=== PATIENT | female | born 1930 | race Caucasian/White ===

== ENCOUNTER 2017-10-22 01:04 | Inpatient (IN) | payer MEDICARE, MEDICAID ==
[~2017-10-22] VITALS: Ht 167.6 cm; Wt 90.7 kg
[2017-10-22] MEDS ORDERED: ondansetron/PF 4mg/2ml inj IV ONE (01:50)
[2017-10-22 02:24] LABS: BASOPHILS % (AUTO) 0.3 % (0-1); EOSINOPHILS # (AUTO) 0.2 X10'3 (0-0.9); EOSINOPHILS % (AUTO) 3.7 % (0-6); HEMOGLOBIN 12.2 g/dl (12.0-16.0); LYMPHOCYTES # (AUTO) 0.6 X10'3 (1.1-4.8); LYMPHOCYTES % (AUTO) 10.9 % (21-51); MEAN CORPUSCULAR HEMOGLOBIN 26.8 PG (27.0-31.0); MEAN CORPUSCULAR VOLUME 81.2 FL (78-98); MEAN PLATELET VOLUME 11.8 FL (7.4-10.4); MONOCYTES # (AUTO) 0.4 X10'3 (0-0.9); MONOCYTES % (AUTO) 7.8 % (2-12); NEUTROPHILS # (AUTO) 4.4 X10'3 (1.8-7.7); NEUTROPHILS % (AUTO) 77.3 % (42-75); PLATELET COUNT 88 X10'3 (140-440); RED BLOOD COUNT 4.55 X10'6 (4.20-5.60); WHITE BLOOD COUNT 5.7 X10'3 (4.5-11.0)
[2017-10-22 02:36] LABS: INR 1.2 INR; PARTIAL THROMBOPLASTIN TIME 33 SECONDS (22-32); PROTHROMBIN TIME 12.6 SECONDS (9.0-12.0)
[2017-10-22 02:44] LABS: ALANINE AMINOTRANSFERASE 17 U/L (12-78); ALBUMIN 3.1 G/DL (3.4-5.0); ALBUMIN/GLOBULIN RATIO 0.9 (1.1-1.5); ALKALINE PHOSPHATASE 106 IU/L (46-116); ANION GAP 4 (8-16); ASPARTATE AMINO TRANSFERASE 17 U/L (10-37); BILIRUBIN,TOTAL 0.5 MG/DL (0.1-1.0); BLOOD UREA NITROGEN 55 MG/DL (7-18); BUN/CREATININE RATIO 28.9 (6.6-38.0); CHLORIDE 90 MMOL/L (99-107); GLUCOSE 144 MG/DL (70-104); MAGNESIUM 2.1 MG/DL (1.5-2.4); SODIUM 123 MMOL/L (135-145); TOTAL PROTEIN 6.7 G/DL (6.4-8.2); eGFR 25 ML/MIN
[2017-10-22 02:52] LABS: GIANT PLATELET FEW; HYPOGRANULAR PLATELETS FEW; LARGE PLATELETS FEW; PLATELET ESTIMATE DECREASED
[2017-10-22 02:53] LABS: ACANTHOCYTES 1+; ANISOCYTOSIS 1+
[2017-10-22] MEDS ORDERED: sodium polystyrene sulfonate 15gm/60ml oral suspension PO ONE (03:10)
[2017-10-22] MEDS ORDERED: CALC500T11 PO (03:17)
[2017-10-22] MEDS ORDERED: MAGN400O6 PO (03:17)
[2017-10-22] MEDS ORDERED: LOPE2CAP PO (03:17)
[2017-10-22] MEDS ORDERED: ALBU0.63 NEB (03:17)
[2017-10-22] MEDS ORDERED: BISA10SU60 (03:17)
[2017-10-22] MEDS ORDERED: ACET-2119 PO (03:17)
[2017-10-22] MEDS ORDERED: HYDR-565 PO ×2 (03:17→17:33)
[2017-10-22] MEDS ORDERED: HYDR28CR14 TP (03:17)
[2017-10-22] MEDS ORDERED: NA P133E4 RC (03:17)
[2017-10-22] MEDS ORDERED: DORZ10DR7 ×2 (03:27→04:27)
[2017-10-22] MEDS ORDERED: CARV6.252 PO (03:27)
[2017-10-22] MEDS ORDERED: GABA100C PO (03:27)
[2017-10-22] MEDS ORDERED: DOCU-28 PO (03:27)
[2017-10-22] MEDS ORDERED: CHOL100046 PO (03:27)
[2017-10-22] MEDS ORDERED: PANT40TA4 PO (03:27)
[2017-10-22] MEDS ORDERED: MELA3TAB PO ×2 (03:27→04:27)
[2017-10-22] MEDS ORDERED: XAL0.005OS OP ×2 (03:27→17:33)
[2017-10-22] MEDS ORDERED: FURO80TA87 PO (03:31)
[2017-10-22] MEDS ORDERED: SENN-161 PO (03:31)
[2017-10-22] MEDS ORDERED: ZAR2.5T PO (03:32)
[2017-10-22] MEDS ORDERED: acetaminophen 325mg tablet PO PRN (03:50)
[2017-10-22] MEDS ORDERED: magnesium hydroxide 30ml (MOM) UD suspension PO PRN (03:50)
[2017-10-22] MEDS ORDERED: mag hydrox/Alum hydrox/simeth 30ml oral suspension PO PRN (03:50)
[2017-10-22] MEDS ORDERED: glucagon, human recombinant 1mg kit SUBCUT PRN (04:10)
[2017-10-22] MEDS ORDERED: MESSAGE TO PHARMACY PO ONE (04:10)
[2017-10-22] MEDS ORDERED: insulin Lispro (HumaLOG) vial - multi-dose SQ SCH (04:10)
[2017-10-22] MEDS ORDERED: dextrose 50%-water 50ml dispensing syringe IV PRN ×2 (04:10)
[2017-10-22] MEDS ORDERED: dextrose ORAL solution 15 GM/59 ML bottle PO PRN ×2 (04:10)
[2017-10-22] MEDS ORDERED: DORZ10DR10 OP ×2 (04:27→17:33)
[2017-10-22] MEDS ORDERED: PANT-47 PO (04:29)
[2017-10-22] MEDS ORDERED: albuterol 1.25 MG/3 ML (1/2 strength) nebule NEB SCH (07:00)
[2017-10-22 07:53] VITALS: BP 119/61
[2017-10-22] MEDS ORDERED: furosemide 10 MG/1 ML 10ml inj IV SCH (08:00)
[2017-10-22] MEDS ORDERED: furosemide 40mg tablet PO SCH (08:00)
[2017-10-22] MEDS ORDERED: carvedilol 6.25mg tablet PO SCH (08:00)
[2017-10-22] MEDS ORDERED: heparin, porcine 5000 units/ml vial SQ SCH (08:00)
[2017-10-22] MEDS ORDERED: metolazone 2.5mg tablet PO SCH (08:00)
[2017-10-22] MEDS: K and/or MAG REPLACEMENT MC SCH (08:45)
[2017-10-22] MEDS ORDERED: potassium Cl 40MEQ/NS 500ml 500 ML IV PRN ×2 (08:45)
[2017-10-22] MEDS ORDERED: potassium Cl 20 mEq SR tablet PO PRN ×2 (08:45)
[2017-10-22 09:10] LABS: CLARITY,URINE CLOUDY (Clear); COLOR,URINE YELLOW (Yellow); GLUCOSE, URINE NEGATIVE (Neg); KETONES,URINE NEGATIVE (Neg); LEUKOCYTE ESTERASE ,URINE LARGE (Neg); NITRITES, URINE NEGATIVE (Neg); OCCULT BLOOD,URINE SMALL (Neg); PROTEIN,URINE NEGATIVE (Neg); UROBILINOGEN,URINE 0.2 E.U/dL (0.2-1.0)
[2017-10-22 09:13] LABS: UA COLLECTION TYPE FOLEY CATH
[2017-10-22 09:22] LABS: WBC,URINE TNTC /HPF (0-4)
[2017-10-22 09:23] LABS: BACTERIA,URINE 4+ /HPF (Neg); RBC,URINE 0-2 /HPF (0-2); SQUAMOUS EPITHELIAL CELL,UR MODERATE /LPF (FEW)
[2017-10-22 09:24] LABS: WBC CLUMPS,URINE MODERATE /HPF (NEGATIVE)
[2017-10-22 11:30] VITALS: BP 99/56
[2017-10-22] MEDS: dorzolamide/timolol (Cosopt) ophthalmic drops 10ml bottle EACHEYE SCH ×2 (13:22→20:20)
[2017-10-22] MEDS: albuterol 1.25 MG/3 ML (1/2 strength) nebule NEB SCH (15:49)
[2017-10-22] MEDS ORDERED: SENN-139 PO (17:33)
[2017-10-22] MEDS ORDERED: LACTC PO (17:33)
[2017-10-22] MEDS ORDERED: POTA10TA19 PO (17:33)
[2017-10-22] MEDS ORDERED: MULT1CAP44 PO (17:33)
[2017-10-22] MEDS ORDERED: IPRA3AMP IH (17:37)
[2017-10-22 18:00] VITALS: BP 109/60
[2017-10-22 18:41] LABS: ANION GAP 9 (8-16); BLOOD UREA NITROGEN 53 MG/DL (7-18); BUN/CREATININE RATIO 26.5 (6.6-38.0); CALCIUM 8.6 MG/DL (8.5-10.1); CHLORIDE 90 MMOL/L (99-107); GLUCOSE 139 MG/DL (70-104); POTASSIUM 4.7 MMOL/L (3.5-5.1); SODIUM 126 MMOL/L (135-145); TOTAL CARBON DIOXIDE 26.7 MMOL/L (24-32); eGFR 23 ML/MIN
[2017-10-22] MEDS ORDERED: fluconazole 100mg tablet PO ONE (19:00)
[2017-10-22] MEDS: levoFLOXACIN-Levaquin 500mg/D5 100 ML IV SCH (19:55)
[2017-10-22] MEDS: furosemide 20 MG/2 ML vial IV SCH (20:02)
[2017-10-22] MEDS: carVEDilol 3.125mg tablet PO SCH (20:20)
[2017-10-22] MEDS: latanoprost 0.005% 2.5ml ophthalmic drops EACHEYE SCH (20:35)
[2017-10-22] MEDS: insulin glargine (Lantus) pen - multi-dose SQ SCH (21:00)
[2017-10-22] MEDS: ondansetron/PF 4mg/2ml inj IV PRN (22:09)
[2017-10-22 23:53] LABS: ALBUMIN 2.8 G/DL (3.4-5.0); ANION GAP 7 (8-16); BLOOD UREA NITROGEN 53 MG/DL (7-18); BUN/CREATININE RATIO 27.9 (6.6-38.0); CALCIUM 8.6 MG/DL (8.5-10.1); CHLORIDE 91 MMOL/L (99-107); GLUCOSE 151 MG/DL (70-104); POTASSIUM 4.7 MMOL/L (3.5-5.1); SODIUM 123 MMOL/L (135-145); TOTAL CARBON DIOXIDE 24.8 MMOL/L (24-32); eGFR 25 ML/MIN
[2017-10-23] VITALS: BP 118/58
[2017-10-23] MEDS: furosemide 20 MG/2 ML vial IV SCH ×3 (00:55→16:55)
[2017-10-23] MEDS: albuterol 1.25 MG/3 ML (1/2 strength) nebule NEB SCH ×4 (02:24→23:38)
[2017-10-23 06:17] LABS: BASOPHILS % (AUTO) 0.3 % (0-1); EOSINOPHILS % (AUTO) 0.7 % (0-6); HEMATOCRIT 39.9 % (35.0-45.0); HEMOGLOBIN 13.4 g/dl (12.0-16.0); LYMPHOCYTES # (AUTO) 0.6 X10'3 (1.1-4.8); LYMPHOCYTES % (AUTO) 10.2 % (21-51); MEAN CORPUSCULAR HGB CONC 33.5 % (33.0-36.5); MEAN CORPUSCULAR VOLUME 80.6 FL (78-98); MEAN PLATELET VOLUME 11.4 FL (7.4-10.4); MONOCYTES # (AUTO) 0.4 X10'3 (0-0.9); MONOCYTES % (AUTO) 6.8 % (2-12); NEUTROPHILS # (AUTO) 4.7 X10'3 (1.8-7.7); PLATELET COUNT 75 X10'3 (140-440); RED BLOOD COUNT 4.94 X10'6 (4.20-5.60); RED CELL DISTRIBUTION WIDTH 17.1 % (11.5-14.5); WHITE BLOOD COUNT 5.7 X10'3 (4.5-11.0)
[2017-10-23 06:21] LABS: INR 1.3 INR; PROTHROMBIN TIME 13.3 SECONDS (9.0-12.0)
[2017-10-23 06:22] LABS: GLUCOSE 137 MG/DL (70-104)
[2017-10-23 06:23] LABS: ALANINE AMINOTRANSFERASE 19 U/L (12-78); ALBUMIN 3.2 G/DL (3.4-5.0); ALBUMIN/GLOBULIN RATIO 0.9 (1.1-1.5); ALKALINE PHOSPHATASE 108 IU/L (46-116); ANION GAP 11 (8-16); ASPARTATE AMINO TRANSFERASE 19 U/L (10-37); BILIRUBIN,TOTAL 0.6 MG/DL (0.1-1.0); BLOOD UREA NITROGEN 52 MG/DL (7-18); BUN/CREATININE RATIO 24.8 (6.6-38.0); CALCIUM 8.9 MG/DL (8.5-10.1); CHLORIDE 89 MMOL/L (99-107); MAGNESIUM 2.1 MG/DL (1.5-2.4); POTASSIUM 4.6 MMOL/L (3.5-5.1); SODIUM 127 MMOL/L (135-145); TOTAL CARBON DIOXIDE 26.6 MMOL/L (24-32); TOTAL PROTEIN 6.8 G/DL (6.4-8.2); eGFR 22 ML/MIN
[2017-10-23 07:25] VITALS: BP 147/99
[2017-10-23] MEDS: K and/or MAG REPLACEMENT MC SCH (08:00)
[2017-10-23] MEDS: dorzolamide/timolol (Cosopt) ophthalmic drops 10ml bottle EACHEYE SCH ×2 (08:55→21:38)
[2017-10-23] MEDS: carVEDilol 3.125mg tablet PO SCH ×2 (09:00→21:38)
[2017-10-23 11:00] VITALS: BP 139/89
[2017-10-23 12:11] LABS: ALBUMIN 3.2 G/DL (3.4-5.0); ANION GAP 9 (8-16); BLOOD UREA NITROGEN 52 MG/DL (7-18); CALCIUM 9.1 MG/DL (8.5-10.1); CHLORIDE 90 MMOL/L (99-107); GLUCOSE 156 MG/DL (70-104); POTASSIUM 4.5 MMOL/L (3.5-5.1); SODIUM 127 MMOL/L (135-145); TOTAL CARBON DIOXIDE 27.9 MMOL/L (24-32); eGFR 23 ML/MIN
[2017-10-23 14:50] VITALS: BP 152/75
[2017-10-23 14:58] VITALS: BP 152/72
[2017-10-23 16:06] LABS: GLUCOSE,BODY FLUID 156 MG/DL; LDH,BODY FLUID 72 U/L; TOTAL PROTEIN,BODY FLUID 2.9 G/DL
[2017-10-23 16:40] LABS: BF RBC COUNT 28 /CU MM; BF WBC COUNT 11 /CU MM (0-1000); BFAPPEAR CLEAR; BFCOLOR YELLOW; BFVOLUME 1000 ML
[2017-10-23] MEDS: lactobacillus rhamnosus 10,000 MMU CELLS/CAPSULE PO SCH (16:57)
[2017-10-23 17:34] LABS: ALBUMIN 2.6 G/DL (3.4-5.0); ANION GAP 11 (8-16); BLOOD UREA NITROGEN 54 MG/DL (7-18); BUN/CREATININE RATIO 28.4 (6.6-38.0); CALCIUM 8.7 MG/DL (8.5-10.1); CHLORIDE 91 MMOL/L (99-107); GLUCOSE 148 MG/DL (70-104); POTASSIUM 4.9 MMOL/L (3.5-5.1); SODIUM 125 MMOL/L (135-145); eGFR 25 ML/MIN
[2017-10-23 17:36] LABS: LYMPHOCYTES,BODY FLUID 12 %; NEUTROPHILS,BODY FLUID 66 %
[2017-10-23 17:37] LABS: EOSINOPHILS,BODY FLUID 0 %; MONOCYTES,BODY FLUID 22 %
[2017-10-23 18:00] VITALS: BP 132/66
[2017-10-23] MEDS: insulin glargine (Lantus) pen - multi-dose SQ SCH (21:00)
[2017-10-23] MEDS: HYDROcodone/acetaminophen 10/325mg tab PO PRN (21:37)
[2017-10-23] MEDS: latanoprost 0.005% 2.5ml ophthalmic drops EACHEYE SCH (21:38)
[2017-10-24] VITALS (12 sets, daily range): BP systolic 94–125; BP diastolic 40–81
[2017-10-24] MEDS: furosemide 20 MG/2 ML vial IV SCH ×3 (00:23→16:00)
[2017-10-24 05:55] LABS: BASOPHILS % (AUTO) 0.4 % (0-1); EOSINOPHILS # (AUTO) 0.1 X10'3 (0-0.9); EOSINOPHILS % (AUTO) 1.4 % (0-6); HEMOGLOBIN 12.9 g/dl (12.0-16.0); LYMPHOCYTES # (AUTO) 0.9 X10'3 (1.1-4.8); LYMPHOCYTES % (AUTO) 16.4 % (21-51); MEAN CORPUSCULAR HEMOGLOBIN 27.1 PG (27.0-31.0); MEAN CORPUSCULAR HGB CONC 33.1 % (33.0-36.5); MEAN CORPUSCULAR VOLUME 81.8 FL (78-98); MEAN PLATELET VOLUME 11.6 FL (7.4-10.4); MONOCYTES # (AUTO) 0.6 X10'3 (0-0.9); MONOCYTES % (AUTO) 11.2 % (2-12); NEUTROPHILS # (AUTO) 3.8 X10'3 (1.8-7.7); NEUTROPHILS % (AUTO) 70.6 % (42-75); PLATELET COUNT 67 X10'3 (140-440); RED BLOOD COUNT 4.77 X10'6 (4.20-5.60); RED CELL DISTRIBUTION WIDTH 17.2 % (11.5-14.5); WHITE BLOOD COUNT 5.4 X10'3 (4.5-11.0)
[2017-10-24] MEDS: HYDROcodone/acetaminophen 10/325mg tab PO PRN ×2 (06:04→21:41)
[2017-10-24 06:37] LABS: ALANINE AMINOTRANSFERASE 17 U/L (12-78); ALBUMIN 2.8 G/DL (3.4-5.0); ALBUMIN/GLOBULIN RATIO 0.9 (1.1-1.5); ALKALINE PHOSPHATASE 92 IU/L (46-116); ANION GAP 9 (8-16); ASPARTATE AMINO TRANSFERASE 21 U/L (10-37); BILIRUBIN,TOTAL 0.5 MG/DL (0.1-1.0); BLOOD UREA NITROGEN 54 MG/DL (7-18); BUN/CREATININE RATIO 25.7 (6.6-38.0); CALCIUM 8.6 MG/DL (8.5-10.1); CHLORIDE 91 MMOL/L (99-107); GLUCOSE 114 MG/DL (70-104); POTASSIUM 4.1 MMOL/L (3.5-5.1); SODIUM 128 MMOL/L (135-145); TOTAL CARBON DIOXIDE 27.9 MMOL/L (24-32); TOTAL PROTEIN 5.9 G/DL (6.4-8.2); eGFR 22 ML/MIN
[2017-10-24 07:01] LABS: ANISOCYTOSIS 1+; LARGE PLATELETS FEW; MICROCYTOSIS 1+; PLATELET ESTIMATE DECREASED; POIKILOCYTOSIS FEW; POLYCHROMASIA FEW
[2017-10-24] MEDS: lactobacillus rhamnosus 10,000 MMU CELLS/CAPSULE PO SCH ×2 (07:30→16:19)
[2017-10-24] MEDS: K and/or MAG REPLACEMENT MC SCH (08:00)
[2017-10-24] MEDS: carVEDilol 3.125mg tablet PO SCH ×2 (08:00→20:00)
[2017-10-24] MEDS: albuterol 1.25 MG/3 ML (1/2 strength) nebule NEB SCH ×3 (08:02→23:59)
[2017-10-24] MEDS: levoFLOXACIN-Levaquin 500mg/D5 100 ML IV SCH (08:25)
[2017-10-24] MEDS: dorzolamide/timolol (Cosopt) ophthalmic drops 10ml bottle EACHEYE SCH ×2 (08:25→20:00)
[2017-10-24] MEDS: ondansetron/PF 4mg/2ml inj IV PRN ×2 (12:39→21:41)
[2017-10-24] MEDS: insulin glargine (Lantus) pen - multi-dose SQ SCH (21:00)
[2017-10-24] MEDS: DOBUTamine-DoBUTrex 500mg/D5W 250 ML IV SCH (21:36)
[2017-10-24] MEDS: Melatonin 3mg tablet PO SCH (21:41)
[2017-10-24] MEDS: latanoprost 0.005% 2.5ml ophthalmic drops EACHEYE SCH (21:53)
[2017-10-25] VITALS (24 sets, daily range): BP systolic 77–143; BP diastolic 31–98
[2017-10-25] MEDS: furosemide 20 MG/2 ML vial IV SCH ×4 (00:25→23:34)
[2017-10-25 07:03] LABS: HEMATOCRIT 37.3 % (35.0-45.0); HEMOGLOBIN 12.3 g/dl (12.0-16.0); MEAN CORPUSCULAR HEMOGLOBIN 26.7 PG (27.0-31.0); MEAN CORPUSCULAR HGB CONC 32.9 % (33.0-36.5); MEAN CORPUSCULAR VOLUME 80.9 FL (78-98); MEAN PLATELET VOLUME 11.7 FL (7.4-10.4); PLATELET COUNT 72 X10'3 (140-440); RED BLOOD COUNT 4.61 X10'6 (4.20-5.60); RED CELL DISTRIBUTION WIDTH 17.4 % (11.5-14.5); WHITE BLOOD COUNT 5.1 X10'3 (4.5-11.0)
[2017-10-25 07:07] LABS: ALANINE AMINOTRANSFERASE 19 U/L (12-78); ALBUMIN 2.7 G/DL (3.4-5.0); ALBUMIN/GLOBULIN RATIO 0.9 (1.1-1.5); ALKALINE PHOSPHATASE 91 IU/L (46-116); ANION GAP 11 (8-16); ASPARTATE AMINO TRANSFERASE 23 U/L (10-37); BILIRUBIN,TOTAL 0.5 MG/DL (0.1-1.0); BLOOD UREA NITROGEN 54 MG/DL (7-18); BUN/CREATININE RATIO 24.5 (6.6-38.0); CALCIUM 8.7 MG/DL (8.5-10.1); CHLORIDE 91 MMOL/L (99-107); GLUCOSE 100 MG/DL (70-104); SODIUM 130 MMOL/L (135-145); TOTAL CARBON DIOXIDE 28.3 MMOL/L (24-32); TOTAL PROTEIN 5.7 G/DL (6.4-8.2); eGFR 21 ML/MIN
[2017-10-25] MEDS: lactobacillus rhamnosus 10,000 MMU CELLS/CAPSULE PO SCH ×2 (07:25→16:58)
[2017-10-25] MEDS: carVEDilol 3.125mg tablet PO SCH ×2 (07:26→20:00)
[2017-10-25] MEDS: HYDROcodone/acetaminophen 10/325mg tab PO PRN (07:26)
[2017-10-25] MEDS: albuterol 1.25 MG/3 ML (1/2 strength) nebule NEB SCH ×3 (07:30→23:15)
[2017-10-25 07:51] LABS: ANISOCYTOSIS 1+; NUCLEATED RED BLOOD CELLS 1 /100WBC (0-0); PLATELET ESTIMATE DECREASED; POLYCHROMASIA 1+; ROULEAUX 1+; TOTAL CELLS COUNTED 100
[2017-10-25 07:52] LABS: ACANTHOCYTES 1+; BURR CELLS 1+
[2017-10-25] MEDS: K and/or MAG REPLACEMENT MC SCH (08:00)
[2017-10-25] MEDS: dorzolamide/timolol (Cosopt) ophthalmic drops 10ml bottle EACHEYE SCH ×2 (08:06→21:47)
[2017-10-25] MEDS: ondansetron/PF 4mg/2ml inj IV PRN (14:34)
[2017-10-25] MEDS: insulin glargine (Lantus) pen - multi-dose SQ SCH (21:00)
[2017-10-25] MEDS: Melatonin 3mg tablet PO SCH (21:36)
[2017-10-25] MEDS: latanoprost 0.005% 2.5ml ophthalmic drops EACHEYE SCH (21:37)
[2017-10-26] VITALS (10 sets, daily range): BP systolic 105–161; BP diastolic 59–114
[2017-10-26] MEDS: DOBUTamine-DoBUTrex 500mg/D5W 250 ML IV SCH ×2 (01:21→07:38)
[2017-10-26 06:41] LABS: BASOPHILS % (AUTO) 0 % (0-1); EOSINOPHILS # (AUTO) 0.1 X10'3 (0-0.9); HEMATOCRIT 38.2 % (35.0-45.0); HEMOGLOBIN 12.9 g/dl (12.0-16.0); LYMPHOCYTES # (AUTO) 0.6 X10'3 (1.1-4.8); LYMPHOCYTES % (AUTO) 9.2 % (21-51); MEAN CORPUSCULAR HEMOGLOBIN 26.9 PG (27.0-31.0); MEAN CORPUSCULAR HGB CONC 33.9 % (33.0-36.5); MEAN CORPUSCULAR VOLUME 79.3 FL (78-98); MEAN PLATELET VOLUME 10.1 FL (7.4-10.4); MONOCYTES # (AUTO) 0.5 X10'3 (0-0.9); MONOCYTES % (AUTO) 7.3 % (2-12); NEUTROPHILS # (AUTO) 5.1 X10'3 (1.8-7.7); NEUTROPHILS % (AUTO) 81.5 % (42-75); PLATELET COUNT 72 X10'3 (140-440); RED BLOOD COUNT 4.81 X10'6 (4.20-5.60); RED CELL DISTRIBUTION WIDTH 17.3 % (11.5-14.5); WHITE BLOOD COUNT 6.2 X10'3 (4.5-11.0)
[2017-10-26] MEDS: albuterol 1.25 MG/3 ML (1/2 strength) nebule NEB SCH ×3 (06:52→23:04)
[2017-10-26 07:21] LABS: ALANINE AMINOTRANSFERASE 20 U/L (12-78); ALBUMIN 2.8 G/DL (3.4-5.0); ALBUMIN/GLOBULIN RATIO 0.8 (1.1-1.5); ALKALINE PHOSPHATASE 108 IU/L (46-116); ANION GAP 10 (8-16); ASPARTATE AMINO TRANSFERASE 24 U/L (10-37); BILIRUBIN,TOTAL 0.6 MG/DL (0.1-1.0); BLOOD UREA NITROGEN 49 MG/DL (7-18); BUN/CREATININE RATIO 24.5 (6.6-38.0); CALCIUM 8.3 MG/DL (8.5-10.1); CHLORIDE 90 MMOL/L (99-107); GLUCOSE 135 MG/DL (70-104); POTASSIUM 3.8 MMOL/L (3.5-5.1); SODIUM 128 MMOL/L (135-145); TOTAL CARBON DIOXIDE 27.7 MMOL/L (24-32); TOTAL PROTEIN 6.1 G/DL (6.4-8.2); eGFR 23 ML/MIN
[2017-10-26] MEDS: K and/or MAG REPLACEMENT MC SCH (08:00)
[2017-10-26] MEDS: dorzolamide/timolol (Cosopt) ophthalmic drops 10ml bottle EACHEYE SCH ×2 (08:00→20:49)
[2017-10-26] MEDS: lactobacillus rhamnosus 10,000 MMU CELLS/CAPSULE PO SCH ×2 (09:00→16:58)
[2017-10-26] MEDS: carVEDilol 3.125mg tablet PO SCH ×2 (09:01→20:49)
[2017-10-26] MEDS: furosemide 20 MG/2 ML vial IV SCH ×2 (09:01→16:52)
[2017-10-26] MEDS: levoFLOXACIN-Levaquin 500mg/D5 100 ML IV SCH (09:02)
[2017-10-26 11:45] LABS: BASOPHILS % (AUTO) 0.2 % (0-1); EOSINOPHILS # (AUTO) 0.1 X10'3 (0-0.9); EOSINOPHILS % (AUTO) 0.9 % (0-6); HEMATOCRIT 38.7 % (35.0-45.0); HEMOGLOBIN 12.6 g/dl (12.0-16.0); LYMPHOCYTES # (AUTO) 0.5 X10'3 (1.1-4.8); LYMPHOCYTES % (AUTO) 8.7 % (21-51); MEAN CORPUSCULAR HEMOGLOBIN 26.7 PG (27.0-31.0); MEAN CORPUSCULAR HGB CONC 32.7 % (33.0-36.5); MEAN CORPUSCULAR VOLUME 81.8 FL (78-98); MEAN PLATELET VOLUME 10.6 FL (7.4-10.4); MONOCYTES # (AUTO) 0.4 X10'3 (0-0.9); MONOCYTES % (AUTO) 6.6 % (2-12); NEUTROPHILS # (AUTO) 4.8 X10'3 (1.8-7.7); NEUTROPHILS % (AUTO) 83.6 % (42-75); PLATELET COUNT 78 X10'3 (140-440); RED BLOOD COUNT 4.73 X10'6 (4.20-5.60); RED CELL DISTRIBUTION WIDTH 17.8 % (11.5-14.5); WHITE BLOOD COUNT 5.8 X10'3 (4.5-11.0)
[2017-10-26 12:00] LABS: ABG HCO3 27.8 mmol/L (22.0-26.0); ABG OXYGEN SATURATION 94.5 % (95-98); ABG PO2 (T) 69.8 mmHg (83-108); FCOHb 0.5 % (0.5-1.5); FMetHb 0.3 % (0.3-1.12); FO2Hb 93.7 % (94-100)
[2017-10-26 12:09] LABS: ALANINE AMINOTRANSFERASE 20 U/L (12-78); ALBUMIN 2.8 G/DL (3.4-5.0); ALBUMIN/GLOBULIN RATIO 0.8 (1.1-1.5); ALKALINE PHOSPHATASE 103 IU/L (46-116); ANION GAP 9 (8-16); ASPARTATE AMINO TRANSFERASE 22 U/L (10-37); BILIRUBIN,TOTAL 0.6 MG/DL (0.1-1.0); BLOOD UREA NITROGEN 48 MG/DL (7-18); CALCIUM 8.5 MG/DL (8.5-10.1); CHLORIDE 92 MMOL/L (99-107); GLUCOSE 155 MG/DL (70-104); POTASSIUM 3.7 MMOL/L (3.5-5.1); SODIUM 130 MMOL/L (135-145); TOTAL CARBON DIOXIDE 28.9 MMOL/L (24-32); TOTAL PROTEIN 6.1 G/DL (6.4-8.2); TROPONIN I < 0.04 NG/ML (0.0-0.05); eGFR 23 ML/MIN
[2017-10-26] MEDS ORDERED: aspirin 325mg tablet PO ONE (13:00)
[2017-10-26] MEDS ORDERED: piperacillin/tazo 3.375gm/50ml 50 ML IV ONE (17:05)
[2017-10-26] MEDS: latanoprost 0.005% 2.5ml ophthalmic drops EACHEYE SCH (20:49)
[2017-10-26] MEDS: Melatonin 3mg tablet PO SCH (20:49)
[2017-10-26] MEDS: insulin glargine (Lantus) pen - multi-dose SQ SCH (22:00)
[2017-10-27] VITALS (15 sets, daily range): BP systolic 108–158; BP diastolic 47–100
[2017-10-27] MEDS: furosemide 20 MG/2 ML vial IV SCH ×3 (00:09→17:05)
[2017-10-27] MEDS: piperacillin/tazo 3.375gm/50ml 50 ML IV SCH ×3 (02:01→14:07)
[2017-10-27 07:43] LABS: BASOPHILS % (AUTO) 0 % (0-1); EOSINOPHILS # (AUTO) 0.1 X10'3 (0-0.9); HEMATOCRIT 36.9 % (35.0-45.0); HEMOGLOBIN 12.4 g/dl (12.0-16.0); LYMPHOCYTES # (AUTO) 0.4 X10'3 (1.1-4.8); LYMPHOCYTES % (AUTO) 7.2 % (21-51); MEAN CORPUSCULAR HGB CONC 33.5 % (33.0-36.5); MEAN CORPUSCULAR VOLUME 80.4 FL (78-98); MEAN PLATELET VOLUME 10.5 FL (7.4-10.4); MONOCYTES # (AUTO) 0.4 X10'3 (0-0.9); MONOCYTES % (AUTO) 7.7 % (2-12); NEUTROPHILS # (AUTO) 4.7 X10'3 (1.8-7.7); NEUTROPHILS % (AUTO) 84.1 % (42-75); PLATELET COUNT 64 X10'3 (140-440); RED BLOOD COUNT 4.59 X10'6 (4.20-5.60); RED CELL DISTRIBUTION WIDTH 17.1 % (11.5-14.5); WHITE BLOOD COUNT 5.5 X10'3 (4.5-11.0)
[2017-10-27 07:59] LABS: ALANINE AMINOTRANSFERASE 21 U/L (12-78); ALBUMIN 2.7 G/DL (3.4-5.0); ALBUMIN/GLOBULIN RATIO 0.8 (1.1-1.5); ALKALINE PHOSPHATASE 95 IU/L (46-116); ANION GAP 8 (8-16); ASPARTATE AMINO TRANSFERASE 21 U/L (10-37); BILIRUBIN,TOTAL 0.6 MG/DL (0.1-1.0); BLOOD UREA NITROGEN 44 MG/DL (7-18); BUN/CREATININE RATIO 23.2 (6.6-38.0); CALCIUM 8.2 MG/DL (8.5-10.1); CHLORIDE 92 MMOL/L (99-107); GLUCOSE 175 MG/DL (70-104); POTASSIUM 3.4 MMOL/L (3.5-5.1); SODIUM 131 MMOL/L (135-145); TOTAL CARBON DIOXIDE 30.9 MMOL/L (24-32); eGFR 25 ML/MIN
[2017-10-27] MEDS: K and/or MAG REPLACEMENT MC SCH (08:00)
[2017-10-27] MEDS: albuterol 1.25 MG/3 ML (1/2 strength) nebule NEB SCH ×2 (08:10→19:56)
[2017-10-27] MEDS: lactobacillus rhamnosus 10,000 MMU CELLS/CAPSULE PO SCH ×2 (09:09→17:05)
[2017-10-27] MEDS: atorvastatin 20mg tablet PO SCH (09:09)
[2017-10-27] MEDS: carVEDilol 3.125mg tablet PO SCH ×2 (09:10→22:01)
[2017-10-27] MEDS: dorzolamide/timolol (Cosopt) ophthalmic drops 10ml bottle EACHEYE SCH ×2 (09:12→21:09)
[2017-10-27] MEDS: aspirin 325mg tablet PO SCH (09:12)
[2017-10-27] MEDS: DOBUTamine-DoBUTrex 500mg/D5W 250 ML IV SCH ×3 (12:54→13:30)
[2017-10-27] MEDS ORDERED: DOBUTamine-DoBUTrex 500mg/D5W 250 ML IV SCH (13:20)
[2017-10-27] MEDS: DOBUTamine 2000 MCG/250ML BAG IV SCH (13:28)
[2017-10-27] MEDS ORDERED: magnesium 4gm in 100ml NS 100 ML IV PRN (20:30)
[2017-10-27] MEDS ORDERED: magnesium Cl slow-release 64mg tablet PO PRN (20:30)
[2017-10-27] MEDS ORDERED: magnesium 2GM in 50ml NS 50 ML IV PRN (20:30)
[2017-10-27] MEDS ORDERED: potassium Cl 40MEQ/NS 500ml 500 ML IV PRN ×2 (20:30)
[2017-10-27] MEDS: insulin glargine (Lantus) pen - multi-dose SQ SCH (21:00)
[2017-10-27] MEDS: latanoprost 0.005% 2.5ml ophthalmic drops EACHEYE SCH (21:10)
[2017-10-27 21:50] LABS: ABG BASE EXCESS 2.9 mmol/L (-2.0-3.0); ABG HCO3 28.8 mmol/L (22.0-26.0); ABG OXYGEN SATURATION 93.7 % (95-98); ABG PCO2 (T) 47.8 mmHg (32.0-45.0); ABG PH (T) 7.394 (7.350-7.450); ALLEN'S TEST Positive; FCOHb 0.3 % (0.5-1.5); FLOW 4 L/min; FMetHb 0.1 % (0.3-1.12); FO2Hb 93.3 % (94-100); PATIENT TEMPERATURE 36.1; RESPIRATORY RATE (OBSERVED) 16 b/min; TOTAL HEMOGLOBIN 12.9 G/dl (12.0-16.0)
[2017-10-27] MEDS: Melatonin 3mg tablet PO SCH (22:01)
[2017-10-27] MEDS: potassium Cl 20 mEq SR tablet PO PRN (22:01)
[2017-10-28] VITALS (12 sets, daily range): BP systolic 103–153; BP diastolic 42–103
[2017-10-28] MEDS: furosemide 20 MG/2 ML vial IV SCH ×4 (00:18→23:42)
[2017-10-28] MEDS: piperacillin-tazo 2.25gm/50ml 50 ML IV SCH ×4 (00:18→23:42)
[2017-10-28] MEDS: albuterol 1.25 MG/3 ML (1/2 strength) nebule NEB SCH ×5 (02:06→23:01)
[2017-10-28 07:05] LABS: BASOPHILS % (AUTO) 0.2 % (0-1); EOSINOPHILS # (AUTO) 0.1 X10'3 (0-0.9); HEMATOCRIT 37.8 % (35.0-45.0); HEMOGLOBIN 12.7 g/dl (12.0-16.0); LYMPHOCYTES # (AUTO) 0.6 X10'3 (1.1-4.8); LYMPHOCYTES % (AUTO) 10.8 % (21-51); MEAN CORPUSCULAR HEMOGLOBIN 27.2 PG (27.0-31.0); MEAN CORPUSCULAR HGB CONC 33.5 % (33.0-36.5); MEAN CORPUSCULAR VOLUME 81.1 FL (78-98); MEAN PLATELET VOLUME 10.5 FL (7.4-10.4); MONOCYTES # (AUTO) 0.5 X10'3 (0-0.9); NEUTROPHILS # (AUTO) 4.5 X10'3 (1.8-7.7); PLATELET COUNT 56 X10'3 (140-440); RED BLOOD COUNT 4.66 X10'6 (4.20-5.60); RED CELL DISTRIBUTION WIDTH 17.3 % (11.5-14.5); WHITE BLOOD COUNT 5.8 X10'3 (4.5-11.0)
[2017-10-28 07:33] LABS: ANISOCYTOSIS 1+; PLATELET ESTIMATE DECREASED
[2017-10-28 07:34] LABS: ACANTHOCYTES 1+
[2017-10-28 07:49] LABS: ALANINE AMINOTRANSFERASE 19 U/L (12-78); ALBUMIN 2.7 G/DL (3.4-5.0); ALBUMIN/GLOBULIN RATIO 0.8 (1.1-1.5); ALKALINE PHOSPHATASE 77 IU/L (46-116); ANION GAP 5 (8-16); ASPARTATE AMINO TRANSFERASE 18 U/L (10-37); BILIRUBIN,TOTAL 0.6 MG/DL (0.1-1.0); BLOOD UREA NITROGEN 40 MG/DL (7-18); CHLORIDE 93 MMOL/L (99-107); GLUCOSE 180 MG/DL (70-104); POTASSIUM 3.3 MMOL/L (3.5-5.1); SODIUM 131 MMOL/L (135-145); TOTAL CARBON DIOXIDE 32.7 MMOL/L (24-32); TOTAL PROTEIN 6.1 G/DL (6.4-8.2); eGFR 23 ML/MIN
[2017-10-28] MEDS ORDERED: K and/or MAG REPLACEMENT MC SCH (08:00)
[2017-10-28] MEDS: K and/or MAG REPLACEMENT MC SCH (08:00)
[2017-10-28] MEDS: aspirin 325mg tablet PO SCH (08:34)
[2017-10-28] MEDS: dorzolamide/timolol (Cosopt) ophthalmic drops 10ml bottle EACHEYE SCH ×2 (08:35→19:35)
[2017-10-28] MEDS: atorvastatin 20mg tablet PO SCH (08:35)
[2017-10-28] MEDS: lactobacillus rhamnosus 10,000 MMU CELLS/CAPSULE PO SCH ×2 (08:35→17:16)
[2017-10-28] MEDS: carVEDilol 3.125mg tablet PO SCH ×2 (08:35→19:35)
[2017-10-28] MEDS: DOBUTamine 2000 MCG/250ML BAG IV SCH (08:35)
[2017-10-28 08:49] LABS: MAGNESIUM 1.6 MG/DL (1.5-2.4)
[2017-10-28] MEDS: levoFLOXACIN 500mg tablet PO SCH ×2 (11:00→11:48)
[2017-10-28] MEDS: potassium Cl 20 mEq SR tablet PO PRN (11:48)
[2017-10-28] MEDS: ondansetron/PF 4mg/2ml inj IV PRN (19:34)
[2017-10-28] MEDS: Melatonin 3mg tablet PO SCH (19:35)
[2017-10-28] MEDS: latanoprost 0.005% 2.5ml ophthalmic drops EACHEYE SCH (19:36)
[2017-10-28] MEDS: insulin glargine (Lantus) pen - multi-dose SQ SCH (21:00)
[2017-10-29] VITALS (8 sets, daily range): BP systolic 116–140; BP diastolic 50–115
[2017-10-29] MEDS: DOBUTamine 2000 MCG/250ML BAG IV SCH (02:34)
[2017-10-29 07:17] LABS: BASOPHILS % (AUTO) 0 % (0-1); EOSINOPHILS # (AUTO) 0.1 X10'3 (0-0.9); EOSINOPHILS % (AUTO) 1.9 % (0-6); HEMATOCRIT 35.7 % (35.0-45.0); HEMOGLOBIN 11.8 g/dl (12.0-16.0); LYMPHOCYTES # (AUTO) 0.4 X10'3 (1.1-4.8); LYMPHOCYTES % (AUTO) 5.5 % (21-51); MEAN CORPUSCULAR HGB CONC 33.1 % (33.0-36.5); MEAN CORPUSCULAR VOLUME 81.5 FL (78-98); MEAN PLATELET VOLUME 10.4 FL (7.4-10.4); MONOCYTES # (AUTO) 0.5 X10'3 (0-0.9); MONOCYTES % (AUTO) 6.7 % (2-12); NEUTROPHILS # (AUTO) 6.2 X10'3 (1.8-7.7); NEUTROPHILS % (AUTO) 85.9 % (42-75); RED BLOOD COUNT 4.38 X10'6 (4.20-5.60); RED CELL DISTRIBUTION WIDTH 17.5 % (11.5-14.5); WHITE BLOOD COUNT 7.2 X10'3 (4.5-11.0)
[2017-10-29 07:36] LABS: ALBUMIN 2.7 G/DL (3.4-5.0); ANION GAP 4 (8-16); BLOOD UREA NITROGEN 40 MG/DL (7-18); BUN/CREATININE RATIO 21.1 (6.6-38.0); CALCIUM 7.9 MG/DL (8.5-10.1); CHLORIDE 95 MMOL/L (99-107); GLUCOSE 168 MG/DL (70-104); POTASSIUM 3.7 MMOL/L (3.5-5.1); SODIUM 132 MMOL/L (135-145); eGFR 25 ML/MIN
[2017-10-29 07:37] LABS: PLATELET COUNT 50 X10'3 (140-440)
[2017-10-29 07:38] LABS: EOSINOPHILS % (MANUAL) 1 % (0-6); LYMPHOCYTES % (MANUAL) 4 % (21-51); MONOCYTES % (MANUAL) 3 % (2-12); NEUTROPHILS % (MANUAL) 92 % (42-75); NUCLEATED RED BLOOD CELLS 4 /100WBC (0-0); PLATELET ESTIMATE DECREASED; TOTAL CELLS COUNTED 100
[2017-10-29 07:39] LABS: ACANTHOCYTES FEW; ANISOCYTOSIS 2+; BURR CELLS FEW
[2017-10-29] MEDS: K and/or MAG REPLACEMENT MC SCH (08:00)
[2017-10-29] MEDS: dorzolamide/timolol (Cosopt) ophthalmic drops 10ml bottle EACHEYE SCH ×2 (08:43→20:22)
[2017-10-29] MEDS: furosemide 20 MG/2 ML vial IV SCH (08:43)
[2017-10-29] MEDS: piperacillin-tazo 2.25gm/50ml 50 ML IV SCH (08:43)
[2017-10-29] MEDS: atorvastatin 20mg tablet PO SCH (08:44)
[2017-10-29] MEDS: lactobacillus rhamnosus 10,000 MMU CELLS/CAPSULE PO SCH ×2 (08:44→17:43)
[2017-10-29] MEDS: aspirin 325mg tablet PO SCH (08:45)
[2017-10-29] MEDS: carVEDilol 3.125mg tablet PO SCH ×2 (08:45→20:23)
[2017-10-29] MEDS: albuterol 1.25 MG/3 ML (1/2 strength) nebule NEB SCH ×3 (09:13→23:06)
[2017-10-29] MEDS: furosemide 40mg/4ml inj IV SCH ×2 (12:31→20:24)
[2017-10-29] MEDS: NUT.TX.GLUC.INTOLER,LAC-FR,REG (BOOST GLUCOSE CONTROL) 237 ML PO SCH ×3 (13:00→18:00)
[2017-10-29] MEDS: Protein Smoothie (high protein) 240ml (8oz) cup PO SCH (18:00)
[2017-10-29] MEDS: Melatonin 3mg tablet PO SCH (20:23)
[2017-10-29] MEDS: latanoprost 0.005% 2.5ml ophthalmic drops EACHEYE SCH (20:23)
[2017-10-29] MEDS: insulin glargine (Lantus) pen - multi-dose SQ SCH (21:53)
[2017-10-30] MEDS: HYDROcodone/acetaminophen 10/325mg tab PO PRN (02:43)
[2017-10-30 03:00] VITALS: BP 144/75
[2017-10-30 06:00] VITALS: BP 119/64
[2017-10-30] MEDS: albuterol 1.25 MG/3 ML (1/2 strength) nebule NEB SCH (07:07)
[2017-10-30 07:17] LABS: BASOPHILS % (AUTO) 0.2 % (0-1); EOSINOPHILS # (AUTO) 0.1 X10'3 (0-0.9); EOSINOPHILS % (AUTO) 1.4 % (0-6); HEMATOCRIT 38.4 % (35.0-45.0); HEMOGLOBIN 12.5 g/dl (12.0-16.0); LYMPHOCYTES # (AUTO) 0.8 X10'3 (1.1-4.8); LYMPHOCYTES % (AUTO) 7.4 % (21-51); MEAN CORPUSCULAR HEMOGLOBIN 26.8 PG (27.0-31.0); MEAN CORPUSCULAR HGB CONC 32.5 % (33.0-36.5); MEAN CORPUSCULAR VOLUME 82.3 FL (78-98); MEAN PLATELET VOLUME 10.5 FL (7.4-10.4); MONOCYTES # (AUTO) 0.8 X10'3 (0-0.9); MONOCYTES % (AUTO) 7.6 % (2-12); NEUTROPHILS # (AUTO) 8.5 X10'3 (1.8-7.7); NEUTROPHILS % (AUTO) 83.4 % (42-75); PLATELET COUNT 54 X10'3 (140-440); RED BLOOD COUNT 4.66 X10'6 (4.20-5.60); WHITE BLOOD COUNT 10.2 X10'3 (4.5-11.0)
[2017-10-30 07:34] LABS: ALANINE AMINOTRANSFERASE 14 U/L (12-78); ALBUMIN 2.5 G/DL (3.4-5.0); ALBUMIN/GLOBULIN RATIO 0.8 (1.1-1.5); ALKALINE PHOSPHATASE 69 IU/L (46-116); ANION GAP 6 (8-16); ASPARTATE AMINO TRANSFERASE 19 U/L (10-37); BILIRUBIN,TOTAL 0.6 MG/DL (0.1-1.0); BLOOD UREA NITROGEN 39 MG/DL (7-18); BUN/CREATININE RATIO 21.7 (6.6-38.0); CALCIUM 7.9 MG/DL (8.5-10.1); CHLORIDE 95 MMOL/L (99-107); GLUCOSE 165 MG/DL (70-104); SODIUM 136 MMOL/L (135-145); TOTAL CARBON DIOXIDE 35.1 MMOL/L (24-32); TOTAL PROTEIN 5.7 G/DL (6.4-8.2); eGFR 26 ML/MIN
[2017-10-30 07:38] LABS: ACANTHOCYTES FEW; ANISOCYTOSIS 2+; LARGE PLATELETS FEW; PLATELET ESTIMATE DECREASED
[2017-10-30] MEDS: NUT.TX.GLUC.INTOLER,LAC-FR,REG (BOOST GLUCOSE CONTROL) 237 ML PO SCH ×2 (08:00→13:52)
[2017-10-30] MEDS: dorzolamide/timolol (Cosopt) ophthalmic drops 10ml bottle EACHEYE SCH (08:28)
[2017-10-30] MEDS: furosemide 40mg/4ml inj IV SCH (08:28)
[2017-10-30] MEDS: potassium Cl 20 mEq SR tablet PO PRN ×2 (08:29→12:14)
[2017-10-30] MEDS: lactobacillus rhamnosus 10,000 MMU CELLS/CAPSULE PO SCH (08:29)
[2017-10-30] MEDS: Protein Smoothie (high protein) 240ml (8oz) cup PO SCH ×2 (08:30→13:52)
[2017-10-30] MEDS: carVEDilol 3.125mg tablet PO SCH (08:30)
[2017-10-30] MEDS: aspirin 325mg tablet PO SCH (08:30)
[2017-10-30] MEDS: atorvastatin 20mg tablet PO SCH (08:30)
[2017-10-30] MEDS: K and/or MAG REPLACEMENT MC SCH (08:33)
[2017-10-30 11:00] VITALS: BP 118/74
[2017-10-30] MEDS: levoFLOXACIN 500mg tablet PO SCH (12:14)
== END 2017-10-30 15:43 | disposition expired | DRG 291 ==
LOC: ER 01:05 → ED HOLD 03:49 → EDBEDREQ 05:27 → SUR 3N 07:49 → PCU 3S 10-24 19:10
PROVIDERS: ADMIT Internal Medicine; ATTEND Internal Medicine
PROC: 0W9B3ZX Drainage of Left Pleural Cavity, Percutaneous Approach, Diagnostic (ICD-10-PCS; principal; 2017-10-23)
PROC: 0W9930Z Drainage of Right Pleural Cavity with Drainage Device, Percutaneous Approach (ICD-10-PCS; 2017-10-23)
DX: I50.23 Acute on chronic systolic (congestive) heart failure (principal); G92 Toxic encephalopathy; J96.21 Acute and chronic respiratory failure with hypoxia; E43 Unspecified severe protein-calorie malnutrition; L89.159 Pressure ulcer of sacral region, unspecified stage; N17.9 Acute kidney failure, unspecified; J90 Pleural effusion, not elsewhere classified; D69.6 Thrombocytopenia, unspecified; S42.291A Other displaced fracture of upper end of right humerus, initial encounter for closed fracture; E87.2 Acidosis; I31.3 Pericardial effusion (noninflammatory); N39.0 Urinary tract infection, site not specified; E87.1 Hypo-osmolality and hyponatremia; E11.22 Type 2 diabetes mellitus with diabetic chronic kidney disease; I07.1 Rheumatic tricuspid insufficiency; I34.0 Nonrheumatic mitral (valve) insufficiency; N18.9 Chronic kidney disease, unspecified; E66.9 Obesity, unspecified; E87.5 Hyperkalemia; F03.90 Unspecified dementia, unspecified severity, without behavioral disturbance, psychotic disturbance, mood disturbance, and anxiety; H40.9 Unspecified glaucoma; I27.20 Pulmonary hypertension, unspecified; Z66 Do not resuscitate; Z79.899 Other long term (current) drug therapy; Z85.038 Personal history of other malignant neoplasm of large intestine; Z87.01 Personal history of pneumonia (recurrent); Z68.32 Body mass index [BMI] 32.0-32.9, adult
CPT/HCPCS: 32555; 36415; 36600; 70450; 70551; 71045; 80048; 80053; 81001; 82803; 82945; 82948; 83036; 83615; 83735; 83880; 83930; 84132; 84157; 84484; 85018; 85025; 85610; 85730; 87070; 87075; 87088; 89051; 93005; 93306; 94640; 94760; 96374; 97110; 97116; 97162; 97530; 99285; A4315; A4565; A6209; A6212; A6213; A6222; A6250; A6402; J1250; J1644; J1815; J1940; J1956; J2405; J2543; J7030